=== PATIENT | female | born 1960 | race Caucasian/White ===

== ENCOUNTER 2022-12-02 14:36 | Outpatient (REF) | payer BC, SELFPAY ==
[2022-12-02 19:10] LABS: Anion Gap 9.9 mmol/L (3-11); BUN 14 mg/dL (7-18); CO2 29.1 mmol/L (21.0-32.0); CREATININE 0.9 mg/dL (0.55-1.02); Calcium 9.2 mg/dL (8.5-10.1); Calculated LDL 172 mg/dL (<100); Chloride 105 mmol/L (98-107); Cholesterol 268 mg/dL (<200); Estimated GFR 71.39 (mL/min/1.73m2); Glucose 92 mg/dL (74-106); HDL Cholesterol 79 mg/dL (40-60); Potassium 3.9 mmol/L (3.5-5.1); Sodium 144 mmol/L (136-145); TSH 0.92 uIU/mL (0.36-3.74); Triglyceride 87 mg/dL (<150)
[2022-12-02 19:18] LABS: HCT 42.5 % (36.0-46.0); MCH 30.2 pg (27.0-33.0); MCHC 32.9 % (32.0-36.0); MCV 92 fL (80-95); Platelet Count 232 10^3/uL (130-400); RBC 4.63 10^6/uL (3.93-5.22); RDW 12.6 % (11.7-14.6); RDW-SD 42.7 fL; WBC 8.02 10^3/uL (4.4-10.8)
[2022-12-06 17:37] LABS: Tissue Transglutaminase Ab IgA <1.2 U/mL; Tissue Transglutaminase Ab IgG 1.9 U/mL
== END 2022-12-02 14:37 | disposition home or self-care (01) ==
LOC: NCHCN 14:36
PROVIDERS: PCP Physician Assistant; Visit Provider Physician Assistant
DX: E78.5 Hyperlipidemia, unspecified (principal); E04.1 Nontoxic single thyroid nodule; R10.9 Unspecified abdominal pain
CPT/HCPCS: 80048; 80061; 85027; 83516; 84443

== ENCOUNTER 2025-04-01 18:40 | Outpatient (REF) | payer BC, SELFPAY ==
[2025-04-01 20:16] LABS: HCT 41.3 % (36.0-46.0); HGB 13.4 g/dL (11.2-15.7); MCH 29.6 pg (27.0-33.0); MCHC 32.4 % (32.0-36.0); MCV 91 fL (80-95); MPV 11.8 fL (8.0-11.0); Platelet Count 233 10^3/uL (130-400); RBC 4.53 10^6/uL (3.93-5.22); RDW 13.1 % (11.7-14.6); RDW-SD 43.5 fL; WBC 7.70 10^3/uL (4.4-10.8)
[2025-04-01 21:04] LABS: Vitamin B12 557 pg/mL (193-986)
== END 2025-04-01 18:41 | disposition home or self-care (01) ==
LOC: NCHCN 18:40
PROVIDERS: PCP Physician Assistant; Visit Provider Physician Assistant
DX: G62.9 Polyneuropathy, unspecified (principal)
CPT/HCPCS: 85027; 82607